=== PATIENT | female | born 1965 | race Caucasian/White ===

== ENCOUNTER 2019-05-25 16:26 | Emergency (ER) | payer OTHER ==
[~2019-05-25] VITALS: Ht 177.8 cm; Wt 131.5 kg
[~2019-05-25 16:26] MED LIST: ASPI81CH PO; HYDACE5 PO; HYDCHL25 PO; PENVK250 PO
[2019-05-25 17:28] LABS: BASOPHILS ABSOLUTE AUTO 0.03 K/mm3 (0.00-0.23); BASOPHILS PERCENT AUTO 1 % (0-2); EOSINOPHILS ABSOLUTE AUTO 0.06 K/mm3 (0.00-0.68); EOSINOPHILS PERCENT AUTO 1 % (0-6); Hematocrit 42.6 % (33.0-51.0); Hemoglobin 13.8 g/dL (11.5-16.0); IMMATURE GRAN ABSOLUTE AUTO 0.01 K/mm3 (0.00-0.10); IMMATURE GRAN PERCENT AUTO 0 % (0-1); LYMPHOCYTES ABSOLUTE AUTO 1.64 K/mm3 (0.84-5.20); LYMPHOCYTES PERCENT AUTO 33 % (21-46); MONOCYTES ABSOLUTE AUTO 0.38 K/mm3 (0.16-1.47); MONOCYTES PERCENT AUTO 8 % (4-13); Mean Corpuscular HGB 30.2 pg (26.0-34.0); Mean Corpuscular HGB Conc 32.4 g/dL (31.5-36.5); Mean Corpuscular Volume 93 fL (80-100); Mean Platelet Volume 11.1 fL (9.1-12.4); NEUTROPHILS ABSOLUTE AUTO 2.92 K/mm3 (1.96-9.15); NEUTROPHILS PERCENT AUTO 58 % (41-73); Platelet Count 159 K/mm3 (150-400); RDW Coefficient Variation 14.4 % (11.7-14.2); RDW Standard Deviation 49.3 fL (35.1-46.3); Red Blood Cell Count 4.57 M/mm3 (3.80-5.20); White Blood Cell Count 5.04 K/mm3 (4.00-11.30)
[2019-05-25 17:50] LABS: Alanine Aminotransfer (ALT/SGP 21 U/L (12-78); Albumin, Blood 3.6 g/dL (3.4-5.0); Albumin/Globulin Ratio 0.9 (0.8-1.8); Alk Phos 79 U/L (50-136); Anion Gap 7 mmol/L (6-16); Aspartate Aminotrans (AST/SGOT 12 U/L (12-37); Bilirubin, Total 0.4 mg/dL (0.1-1.0); Blood Urea Nitrogen 23 mg/dL (8-24); Bun/Creatinine Ratio 29.9 (12.0-20.0); CO2, Blood 27 mmol/L (21-32); Calcium, Blood 9.3 mg/dL (8.5-10.1); Chloride, Blood 104 mmol/L (98-108); Creatinine, Blood 0.77 mg/dL (0.40-1.00); Glomerular Filtration Rate >60 (60-); Glucose, Blood 89 mg/dL (70-99); Potassium, Blood 3.5 mmol/L (3.5-5.5); Sodium, Blood 138 mmol/L (136-145); Total Protein, Blood 7.6 g/dL (6.4-8.2); Troponin I <0.015 ng/mL (0.000-0.040)
== END 2019-05-25 19:26 | disposition home or self-care (01) ==
LOC: ER 16:26
PROVIDERS: Physician Assistant
DX: I10 Essential (primary) hypertension (principal); F17.210 Nicotine dependence, cigarettes, uncomplicated
CPT/HCPCS: 36415; 71046; 80053; 84484; 85025; 93005; 93010; 99284-25

== ENCOUNTER → 2019-10-07 | Outpatient (CLI) | payer OTHER ==
[2019-10-09 19:08] LABS: HPV 16 Negative (Negative); HPV 18 Negative (Negative); HPV OTHER HR TYPES Negative (Negative)
== END | disposition home or self-care (01) ==
LOC: LAB SHORT 19:08 → LAB 19:08
PROVIDERS: Physician Assistant
DX: Z01.419 Encounter for gynecological examination (general) (routine) without abnormal findings (principal)
CPT/HCPCS: 87624; G0123

== ENCOUNTER 2019-12-07 06:03 | Day surgery (SDC) | payer OTHER ==
[~2019-12-07] VITALS: Ht 177 cm; Wt 112.8 kg
[~2019-12-07 06:03] MED LIST changes: +Norco 5-325 Ta1 EACH PO; +Prinivil10 MG PO
--- NOTE | 2019-12-07 08:21 | NUR ---
History, Chart, Medications and Allergies reviewed before start of procedure.Patient confirms NPO status and agrees with scheduled surgery. Patient reports completing Chlorhexadine WASH X2 prior to admission to hospital, PT REPORT UNABLE TO GET INTO SHOWER AT THIS TIME DUE TO ANKLE INJURY.Surgical site prepped with 2% Chlorhexidine cloth wipe. DISCUSSED NO LABS OR EKG WITH DR. JARQUIN. PER HIM NO NEED FOR THESE PREOP.
--- NOTE | 2019-12-07 09:06 | NUR ---
12/07/19 0[address] THE LOCAL USED WAS 20ML OF 0.5% BUPIVICAINE 1:1 WITH LIDOCAINE 1%, INJECTED AT OPERATIVE SITE.
--- NOTE | 2019-12-07 10:11 | NUR ---
RAMP SERVICE MAN | IV ASSESSMENT THIS RN WAS ASSESSING IV FROM OPPOSITE SIDE OF BED WHEN, TRYING TO PULL COVERS OUT OF THE WAY, ACCIDENTLY TOUCHED PATIENT BREAST. SPOKE WITH PATIENT ABOUT EVENT AND APOLOGIZED. THE PATIENT STATED THAT THEY "DIDN'T EVEN NOTICE" AND THEY SAID "IT'S OKAY". THIS INFORMATION RELAYED TO DESTIN BUSCH (C SOFTWARE DEVELOPER).
--- NOTE | 2019-12-07 10:22 | NUR ---
Discharge instructions reviewed with patient. Patient verbalizes understanding. Copy given to patient to take home. Discharged via wheelchair to private car for ride home.DRG X2 TO RIGHT CHEST C/D/I. PT DENIES PAIN. REVIEWED DC INSTRUCTIONS W/ PT SISTER TONJA WELL.
[2019-12-22] MEDS ORDERED: LOPE2C PO (10:42)
[2019-12-22] MEDS ORDERED: XARELTO15 MG PO (10:43)
[2019-12-22] MEDS ORDERED: [UNRECOGNIZED DRUG - OTHER] PO (10:43)
[2019-12-22] MEDS ORDERED: LEVFLO500 PO (10:44)
== END 2019-12-07 10:25 | disposition home or self-care (01) ==
LOC: ORSCMMR 06:03 → ORD 08:30 → ORSCMMR 10:25
PROVIDERS: Surgery
PROC: 05HM33Z Insertion of Infusion Device into Right Internal Jugular Vein, Percutaneous Approach (ICD-10-PCS; principal; 2019-12-07 08:30)
PROC: B543ZZA Ultrasonography of Right Jugular Veins, Guidance (ICD-10-PCS; principal; 2019-12-07 08:30)
DX: C25.2 Malignant neoplasm of tail of pancreas (principal); I10 Essential (primary) hypertension; F17.210 Nicotine dependence, cigarettes, uncomplicated; E66.01 Morbid (severe) obesity due to excess calories; Z68.36 Body mass index [BMI] 36.0-36.9, adult; Z79.899 Other long term (current) drug therapy; Z79.82 Long term (current) use of aspirin
CPT/HCPCS: 77001; C1788; J0690; J1642; J2250; J2704; J3010; J7120

== ENCOUNTER 2020-05-09 12:24 | Emergency (ER) | payer OTHER ==
[~2020-05-09] VITALS: Ht 177.8 cm; Wt 110.7 kg
[~2020-05-09 12:24] MED LIST changes: +LEVFLO500 PO; +LOPE2C PO; +MORP15ER PO; +PRED20 PO; +XARELTO15 MG PO; +[UNRECOGNIZED DRUG - OTHER] PO
[2020-05-09 14:17] LABS: BASOPHILS ABSOLUTE AUTO 0.03 K/mm3 (0.00-0.23); BASOPHILS PERCENT AUTO 0 % (0-2); EOSINOPHILS ABSOLUTE AUTO 0.06 K/mm3 (0.00-0.68); EOSINOPHILS PERCENT AUTO 1 % (0-6); Hematocrit 38.1 % (33.0-51.0); Hemoglobin 12.2 g/dL (11.5-16.0); IMMATURE GRAN ABSOLUTE AUTO 0.03 K/mm3 (0.00-0.10); IMMATURE GRAN PERCENT AUTO 0 % (0-1); LYMPHOCYTES ABSOLUTE AUTO 0.97 K/mm3 (0.84-5.20); LYMPHOCYTES PERCENT AUTO 11 % (21-46); MONOCYTES ABSOLUTE AUTO 0.54 K/mm3 (0.16-1.47); MONOCYTES PERCENT AUTO 6 % (4-13); Mean Corpuscular Volume 94 fL (80-100); Mean Platelet Volume 12.5 fL (9.1-12.4); NEUTROPHILS ABSOLUTE AUTO 6.87 K/mm3 (1.96-9.15); NEUTROPHILS PERCENT AUTO 81 % (41-73); Platelet Count 123 K/mm3 (150-400); RDW Coefficient Variation 14.1 % (11.7-14.2); RDW Standard Deviation 48.4 fL (35.1-46.3); Red Blood Cell Count 4.06 M/mm3 (3.80-5.20)
[2020-05-09 14:28] LABS: Alanine Aminotransfer (ALT/SGP 90 U/L (12-78); Albumin, Blood 2.8 g/dL (3.4-5.0); Albumin/Globulin Ratio 0.7 (0.8-1.8); Alk Phos 683 U/L (50-136); Anion Gap 10 mmol/L (6-16); Aspartate Aminotrans (AST/SGOT 95 U/L (12-37); Bilirubin, Total 1.3 mg/dL (0.1-1.0); Blood Urea Nitrogen 16 mg/dL (8-24); Bun/Creatinine Ratio 23.4 (12.0-20.0); CO2, Blood 22 mmol/L (21-32); Calcium, Blood 9.8 mg/dL (8.5-10.1); Chloride, Blood 102 mmol/L (98-108); Creatinine, Blood 0.69 mg/dL (0.40-1.00); Globulin, Blood 4.3 g/dL (2.2-4.0); Glomerular Filtration Rate >60 (60-); Glucose, Blood 85 mg/dL (70-99); Potassium, Blood 4.1 mmol/L (3.5-5.5); Sodium, Blood 134 mmol/L (136-145); Total Protein, Blood 7.1 g/dL (6.4-8.2)
[2020-05-09 15:10] LABS: Source, Urine Clean Catch
[2020-05-09 15:12] LABS: Appearance, Urine Clear (Clear); Bilirubin, Urine Neg (Neg); Blood, Urine Neg (Neg); Color, Urine Amber (P-Yellow); Glucose Qualitative, Urine Neg (Neg); Ketones, Urine 3+ (Neg); Leukocyte Esterase, Urine 1+ (Neg); Nitrite, Urine Neg (Neg); Protein, Urine 2+ (Neg); Urobilinogen, Urine NORM (Normal)
[2020-05-09 15:37] LABS: Bacteria Mod /hpf; Red Blood Cells, Urine 0-2 /hpf (0-2); Squamous Epithelial Cells Mod /hpf (Few)
== END 2020-05-09 17:14 | disposition home or self-care (01) ==
LOC: ER 12:24
PROVIDERS: Physician Assistant
DX: C25.9 Malignant neoplasm of pancreas, unspecified (principal); C78.7 Secondary malignant neoplasm of liver and intrahepatic bile duct; M54.6 Pain in thoracic spine; I10 Essential (primary) hypertension; Z79.01 Long term (current) use of anticoagulants; Z79.899 Other long term (current) drug therapy
CPT/HCPCS: 72125; 72128; 80053; 81001; 85025; 87086; 96374; 96375; 99284-25; J1170; J1642; J2405; J7030

== ENCOUNTER 2020-05-23 11:58 | Inpatient (IN) | payer OTHER ==
[~2020-05-23] VITALS: Ht 177.8 cm; Wt 110.0 kg
[2020-05-23 13:04] LABS: Hemoglobin 12.8 g/dL (11.5-16.0); Mean Corpuscular HGB 28.6 pg (26.0-34.0); Mean Corpuscular HGB Conc 32.8 g/dL (31.5-36.5); Mean Corpuscular Volume 87 fL (80-100); RDW Coefficient Variation 14.6 % (11.7-14.2); RDW Standard Deviation 46.6 fL (35.1-46.3); Red Blood Cell Count 4.48 M/mm3 (3.80-5.20); White Blood Cell Count 1.55 K/mm3 (4.00-11.30)
[2020-05-23 13:19] LABS: Albumin, Blood 2.4 g/dL (3.4-5.0); Albumin/Globulin Ratio 0.5 (0.8-1.8); Calcium, Blood 9.2 mg/dL (8.5-10.1); Creatinine, Blood 1.12 mg/dL (0.40-1.00); Globulin, Blood 4.4 g/dL (2.2-4.0); Platelet Count 22 K/mm3 (150-400); Potassium, Blood 3.5 mmol/L (3.5-5.5); Total Protein, Blood 6.8 g/dL (6.4-8.2)
[2020-05-23 13:28] LABS: BAND PERCENT MAN 4 % (0-8); BASOPHILS PERCENT MAN 0 % (0-2); EOSINOPHILS PERCENT MAN 0 % (0-6); LYMPHOCYTES ABSOLUTE MAN 0.24 K/mm3 (0.84-5.20); LYMPHOCYTES PERCENT MAN 16 % (21-46); MONOCYTES ABSOLUTE MAN 0.03 K/mm3 (0.16-1.47); MONOCYTES PERCENT MAN 2 % (4-13); NEUTROPHILS ABSOLUTE MAN 1.27 K/mm3 (1.96-9.15); SEG NEUTROPHILS PERCENT MAN 78 % (41-73); TOTAL CELLS COUNTED 50
--- NOTE | 2020-05-23 13:42 | NUR ---
ED Palliative Care Consult Spoke with Dr Castaneda and discussed case. Pt to ED for nausea and vomiting. Pt has Pancreatic Cancer with Liver Mets. Currently receiving chemo therapy. Pt may benefit from conversation regarding goals of care. Attempted to see Pt but currently receiving care from ED nurse Ruth. Ruth attempting IV. Will F/U at a later time.
--- NOTE | 2020-05-23 14:35 | NUR ---
Pt is currently being taken down to imaging. Pt's daughter Gudelia remains in the room. Gudelia states "Is she nearing the end"? Asked Gudelia to elaborate the questions. She states "The doctor mentioned hospice". Instructed Gudelia hospice is an option for Pt to consider at some point in her future. Pt arrives back to room. Pt reports 8/10 pain in her back and abdomen. Pt reports taking morphine 15mg IR Q 4-6 hours PRN. She states times that breakthrough medication helps and times is does not. Engaged in therapeutic conversation regarding the option for hospice. Discussed the importance of routine conversations with Dr Portillo regarding treatment and benefits vs considering hospice. Discussed treatment vs comfort and quality of life. Pt does not respond or give her thoughts regarding hospice. Ended visit to allow Pt to rest. Spoke with Pt's ED RN Ruth and discussed case. Palliative Care will remain available.
[2020-05-23 17:34] LABS: Source, Urine Clean Catch
[2020-05-23 17:46] LABS: Appearance, Urine Cloudy (Clear); Blood, Urine 3+ (Neg); Color, Urine Amber (P-Yellow); Glucose Qualitative, Urine Neg (Neg); Ketones, Urine 1+ (Neg); Leukocyte Esterase, Urine 1+ (Neg); Nitrite, Urine Pos (Neg); Protein, Urine 3+ (Neg); Specific Gravity, Urine 1.025 (1.003-1.022); Urobilinogen, Urine 2+ (Normal)
[2020-05-23 17:51] LABS: Bilirubin, Urine 2+ (Neg)
[2020-05-23 17:54] LABS: White Blood Cells, Urine 25-50 /hpf (0-5)
[2020-05-23 17:55] LABS: Bacteria Many /hpf; Squamous Epithelial Cells Few /hpf (Few); Transitional Epithelial Cells Mod /hpf (0-Rare)
--- NOTE | 2020-05-23 19:29 | NUR ---
PT ADMITTED TO ICU FROM ER FOR POSSIBLE SEPSIS, HYPOTENSION, SIRS. PT HAS STAGE 1V PANCREATIC CA W METS TO LIVER. PT ARRIVED AWAKE, DROSWY, PALE, DIAPHORETIC. PT STATED ON ADMIT THAT PAIN AND NAUSEA WHERE IMPROVED. ADMIT BP LOW W MAP <60. LEVOPHED STARTED TO MEDIPORT FOR HYPOTENSION. LR STARTED AT 150CC/HR. POWERGLIDE PLACED TO DELISA FOR PROTONIX GTT. SHORTLY AFTER POWERGLIDE STARTED, HYPOTENSION WORSENED, PT BECAME BRADYCARDIC IN 30'S, PT BECAME WHITE, LIPS TURNED BLUE, PT VERY DAZED. ATROPINE 0.5MG GIVEN FOR SYMPTOMATIC BRADYCARDIA. LEVOPHED TITRATED UP TO 30MCG. PT RESPONDED WELL TO ATROPINE AND LEVOPHED WAS TITRATED DOWN TO 6MCG. DR CARROLL CALLED AND GIVEN UPDATE. CONSULT ORDERED FOR CRITICAL CARE. DR ELIZABETH CALLED AND WAS IN TO SEE PT WITHIN 15MIN. VASOPRESSIN ORDERED AND STARTED AT 0.04UNITS. ONE UNIT PLATELETS GIVEN WITHOUT ANY ADVERSE REACTIONS. PT LOOKS MUCH IMPROVED. MENTATING WELL, COLOR IMPROVED, BP IMPROVED. PT NOW IN SINUS RYTHYM W RATE 60-80.
[2020-05-23 23:25] LABS: Hematocrit 30.6 % (33.0-51.0); Hemoglobin 9.9 g/dL (11.5-16.0)
[2020-05-24 03:55] LABS: BASOPHILS ABSOLUTE AUTO 0.02 K/mm3 (0.00-0.23); BASOPHILS PERCENT AUTO 1 % (0-2); Hemoglobin 9.7 g/dL (11.5-16.0); LYMPHOCYTES ABSOLUTE AUTO 0.72 K/mm3 (0.84-5.20); LYMPHOCYTES PERCENT AUTO 24 % (21-46); MONOCYTES ABSOLUTE AUTO 0.19 K/mm3 (0.16-1.47); MONOCYTES PERCENT AUTO 6 % (4-13); Mean Corpuscular HGB 28.8 pg (26.0-34.0); Mean Corpuscular HGB Conc 32.3 g/dL (31.5-36.5); Mean Corpuscular Volume 89 fL (80-100); Mean Platelet Volume 11.9 fL (9.1-12.4); RDW Coefficient Variation 14.6 % (11.7-14.2); Red Blood Cell Count 3.37 M/mm3 (3.80-5.20); White Blood Cell Count 2.97 K/mm3 (4.00-11.30)
[2020-05-24 03:58] LABS: EOSINOPHILS PERCENT AUTO 0 % (0-6); IMMATURE GRAN ABSOLUTE AUTO 0.25 K/mm3 (0.00-0.10); IMMATURE GRAN PERCENT AUTO 8 % (0-1); NEUTROPHILS ABSOLUTE AUTO 1.79 K/mm3 (1.96-9.15); NEUTROPHILS PERCENT AUTO 60 % (41-73)
[2020-05-24 03:59] LABS: Platelet Count 25 K/mm3 (150-400)
[2020-05-24 04:11] LABS: Alanine Aminotransfer (ALT/SGP 64 U/L (12-78); Albumin, Blood 1.9 g/dL (3.4-5.0); Albumin/Globulin Ratio 0.5 (0.8-1.8); Alk Phos 398 U/L (50-136); Anion Gap 8 mmol/L (6-16); Aspartate Aminotrans (AST/SGOT 84 U/L (12-37); Bilirubin, Total 1.3 mg/dL (0.1-1.0); Blood Urea Nitrogen 19 mg/dL (8-24); CO2, Blood 25 mmol/L (21-32); Calcium, Blood 7.9 mg/dL (8.5-10.1); Chloride, Blood 103 mmol/L (98-108); Creatinine, Blood 0.83 mg/dL (0.40-1.00); Globulin, Blood 3.8 g/dL (2.2-4.0); Glomerular Filtration Rate >60 (60-); Glucose, Blood 137 mg/dL (70-99); Potassium, Blood 3.4 mmol/L (3.5-5.5); Sodium, Blood 136 mmol/L (136-145); Total Protein, Blood 5.7 g/dL (6.4-8.2)
[2020-05-24 04:25] LABS: BAND PERCENT MAN 8 % (0-8); BASOPHILS PERCENT MAN 0 % (0-2); EOSINOPHILS PERCENT MAN 0 % (0-6); LYMPHOCYTES ABSOLUTE MAN 0.86 K/mm3 (0.84-5.20); LYMPHOCYTES PERCENT MAN 29 % (21-46); METAMYELOCYTE ABSOLUTE MAN 0.05 K/mm3 (0.00-0.00); METAMYELOCYTE PERCENT MAN 2 % (0-0); MONOCYTES PERCENT MAN 0 % (4-13); NEUTROPHILS ABSOLUTE MAN 2.04 K/mm3 (1.96-9.15); SEG NEUTROPHILS PERCENT MAN 61 % (41-73); TOTAL CELLS COUNTED 100
--- NOTE | 2020-05-24 05:31 | NUR ---
SHIFT SUMMARY PATIENT SLEPT WELL THROUGH NIGHT. HAD ONE INSTANCE OF VOIDING, BP IMPROVED GREATLY, LEVOPHED DRIP NOW DOWN TO 4 MCG/MIN. PAIN WELL CONTROLLED WITH AVAILABLE FENTANYL. BOTH BLOOD CULTURES POSITIVE FOR GRAM NEGATIVE BACILLI, INFORMED DR. DAVIS. VSS. WILL CONTINUE TO MONITOR.
--- NOTE | 2020-05-24 08:00 | NUR ---
PT AWAKE IN BED THIS AM, STATES SHE FEELS BETTER THAN SHE DID YESTERDAY. PT REQUEST FOOD AND SOMETHING TO DRINK. LEVOPHED AT 6MCG, PT REQUEST TO GET UP TO COMMODE (SHE STATED SHE HAD EARLIER AND TOLERATED WELL), SBP AT THAT TIME 126. ORTHSTATIC BP'S TAKEN, SBP DID DROP W STANDING TO 103, PT ASSISTED BACK TO BED, WILL KEEP ON BEDREST FOR NOW AND TITRATE DOWN LEVOPHED TOLERATED. PT STATES PAIN TO RUQ AND LUQ 3/10, STATES RUQ IS HER "NORMAL PAIN" AND LUQ IS NEW PAIN. PT DENIES NAUSEA. BT'S PRESENT T/O. PT VOIDED 500CC DARK ORANGE URINE.DR CARROLL CALLED AND GIVEN UPDATE, INCLUDING + BLOOD CX'S. AWITING NEW ORDERS.
--- NOTE | 2020-05-24 10:10 | NUR ---
Pt resting in bed and reports feeling better. Pt reports 7/10 pain. Pt's daughter Gudelia on speaker phone during visit. Discussed MS Contin listed on home medication list. Both Gudelia and Pt's confirms not taking MS Contine. Pt reports taking Morphine IR 15mg Q 4-6 hours PRN. Pt reports being on this medication for approximately 1 month and experiences light headedness and dizziness after taking. Pt agreeable to have MD consider different pain medication for home. Called Pt's pharmacy and confirmed Pt's pain medication of Morphine IR 15mg tablet Q 4-6 hours PRN for pain. Spoke with Pt's bedside RN Micaela and reported home medication. Micaela will correct medication in Pt's home med list. Called and spoke with Gaby at Dr Portillo's office. Reported Pt's symptoms after taking pain medication. Gaby will relay information to Dr Portillo for consideration. Palliative Care will remain available.
--- NOTE | 2020-05-24 11:02 | NUR ---
DR CARROLL AND DR HERNANDEZ IN TO SEE PT THIS AM. SEE NEW ORDERS. LEVOPHED GTT PLACED ON STANDBY
--- NOTE | 2020-05-24 12:00 | NUR ---
Echocardiogram completed.
--- NOTE | 2020-05-24 12:20 | NUR ---
PT'S BP REMAINS LOW BUT STABLE W MAP >65 OFF OF LEVOPHED. PT C/O BEING COLD/CHILLED. TEMP 97.1. ROOM TEMP INCREASED, WARM BLANKETS GIVEN. FENT 25MCG IVP GIVEN FOR ABD PAIN 12/20; PT STATES IT HAS NOT HELPED YET; WILL NOTIFY
[2020-05-24] MEDS ORDERED: MORPHINE SULFAT15 M1 PO (14:16)
--- NOTE | 2020-05-24 16:41 | NUR ---
FENTANYL DOSE CHANGED TO 25-50MCG Q 4HRS FOR PAIN. FENT 25MCG GIVEN FOR ABD PAIN 11/19. LEVOPHED HAS BEEN OFF SINCE THIS AM AND BP HAS BEEN SOFT BUT STABLE. PT WAS UP TO COMMODE TO VOID AND PASS BM; TOLERATED WELL. PT NOW PCU STATUS PER DR ELIZABETH.
[2020-05-25 04:41] LABS: BASOPHILS ABSOLUTE AUTO 0.01 K/mm3 (0.00-0.23); BASOPHILS PERCENT AUTO 1 % (0-2); Hematocrit 28.1 % (33.0-51.0); LYMPHOCYTES ABSOLUTE AUTO 0.37 K/mm3 (0.84-5.20); LYMPHOCYTES PERCENT AUTO 28 % (21-46); MONOCYTES ABSOLUTE AUTO 0.31 K/mm3 (0.16-1.47); MONOCYTES PERCENT AUTO 23 % (4-13); Mean Corpuscular HGB 28.5 pg (26.0-34.0); Mean Corpuscular Volume 89 fL (80-100); RDW Coefficient Variation 14.5 % (11.7-14.2); RDW Standard Deviation 47.1 fL (35.1-46.3); Red Blood Cell Count 3.16 M/mm3 (3.80-5.20); White Blood Cell Count 1.34 K/mm3 (4.00-11.30)
[2020-05-25 04:45] LABS: EOSINOPHILS PERCENT AUTO 0 % (0-6); IMMATURE GRAN ABSOLUTE AUTO 0.14 K/mm3 (0.00-0.10); IMMATURE GRAN PERCENT AUTO 10 % (0-1); NEUTROPHILS ABSOLUTE AUTO 0.51 K/mm3 (1.96-9.15); NEUTROPHILS PERCENT AUTO 38 % (41-73)
[2020-05-25 04:46] LABS: Platelet Count 13 K/mm3 (150-400)
--- NOTE | 2020-05-25 04:50 | NUR ---
SHIFT SUMMARY PATIENT HAS SLEPT VERY WELL TONIGHT. GAVE ONE DOSE OF FENTANYL FOR PAIN, PT. STATES THIS TAKES THE PAIN AWAY FOR A GOOD COUPLE OF HOURS, BUT A DULL, TOLERABLE, ACHE IS PRESENT NEARLY CONSTANTLY. NO ISSUES WITH BLOOD PRESSURE. HAS HAD A COUPLE OF MINOR NOSE BLEEDS, E.B.L. < 5 mL, NO OTHER SOURCE OF BLEEDING. VSS. ASSESSMENT IS CHARTED. WILL CONTINUE TO MONITOR.
[2020-05-25 05:08] LABS: Alanine Aminotransfer (ALT/SGP 52 U/L (12-78); Albumin, Blood 1.7 g/dL (3.4-5.0); Albumin/Globulin Ratio 0.5 (0.8-1.8); Alk Phos 368 U/L (50-136); Anion Gap 8 mmol/L (6-16); Aspartate Aminotrans (AST/SGOT 62 U/L (12-37); Blood Urea Nitrogen 12 mg/dL (8-24); Bun/Creatinine Ratio 18.2 (12.0-20.0); CO2, Blood 25 mmol/L (21-32); Chloride, Blood 102 mmol/L (98-108); Creatinine, Blood 0.66 mg/dL (0.40-1.00); Globulin, Blood 3.5 g/dL (2.2-4.0); Glomerular Filtration Rate >60 (60-); Glucose, Blood 76 mg/dL (70-99); Potassium, Blood 3.6 mmol/L (3.5-5.5); Sodium, Blood 135 mmol/L (136-145); Total Protein, Blood 5.2 g/dL (6.4-8.2)
[2020-05-25 05:21] LABS: BAND PERCENT MAN 10 % (0-8); BASOPHILS PERCENT MAN 0 % (0-2); EOSINOPHILS PERCENT MAN 0 % (0-6); LYMPHOCYTES ABSOLUTE MAN 0.33 K/mm3 (0.84-5.20); LYMPHOCYTES PERCENT MAN 25 % (21-46); METAMYELOCYTE ABSOLUTE MAN 0.02 K/mm3 (0.00-0.00); METAMYELOCYTE PERCENT MAN 2 % (0-0); MONOCYTES ABSOLUTE MAN 0.25 K/mm3 (0.16-1.47); MONOCYTES PERCENT MAN 19 % (4-13); NEUTROPHILS ABSOLUTE MAN 0.67 K/mm3 (1.96-9.15); SEG NEUTROPHILS PERCENT MAN 40 % (41-73); TOTAL CELLS COUNTED 100
[2020-05-25 05:22] LABS: OTHER CELL PERCENT MAN 4 % (0-0)
--- NOTE | 2020-05-25 09:42 | NUR ---
recieved report from Zora nurse companion @ [phone]. Patient to transfer to room 326.
--- NOTE | 2020-05-25 09:49 | NUR ---
AM NOTE... ASSUMED CARE OF PT APROX 0700. PT IS A&Ox4 AND SBA TO THE BSC. PT IS ON LR AT 150MLS/HR PT'S VS STABLE AT THIS TIME. PT DENIES ANY CHEST PAIN/PRESSURE. PT WAS MEDICATED FOR NAUSEA AND 9/10 ABD PAIN PER EMAR. PT IS ON RA. L/S CLEAR T/O. BT PRESENT AND NORMOACTIVE, ABD IS SOFT BUT TENDER TO PALP. NO EDEMA NOTED ON ASSESSMENT. MEDIPORT RUNNING LR AT 150MLS/HR, POWERGLIDE TO THE DELISA. PT IS TO BE NPO FOR POSSIBLE LÓPEZ BY DR. RIVERO. PT IS TO TRANSFER TO THE MEDICAL FLOOR, MEDICAL FLOOR NURSE CALLED AND REPORT WAS GIVEN. CALL LIGHT IN REACH WILL CONTINUE TO MONITOR UNTIL THE PT IS TRANSFERRED.
--- NOTE | 2020-05-25 14:22 | NUR ---
CALLED DR CARROLL AT 1420 TO ASK FOR BETTER PAIN MANAGEMENT AND N/V CONTROL. NEW ORDERS NOTED IN EMAR. ORDERS TO ADVANCE DIET TOLERATED TO BEGIN WITH FULL DIET.
--- NOTE | 2020-05-25 16:46 | NUR ---
PATIENT IS VERY SICK; NAUSEAS AND DRY HEAVING AND JUST MISERABLE. SHE IS VERY COOPERATIVE WITH CARE AND TREATMENTS DESPITE FEELING HORRIBLE. PATIENT CONTINUES ON IV ABX WITHOUT S/SX OF ADVERSE REACTIONS NOTED OR REPORTED. IMAGING AND TESTS CONTINUE TO BE PERFORMED. PATIENT MEDICATED FOR PAIN AND NAUSEA NEEDED. DAUGHTER IS AT BEDSIDE AT THIS TIME. CALL LIGHT WITHIN REACH. WILL CONTINUE TO MONITOR AND PROVIDE CARE NEEDED.
--- NOTE | 2020-05-25 16:49 | NUR ---
Supportive visit today. Pt resting in bed and reports 5/10 pain. She reports current pain medication is beneficial for only short term. Pt reports feeling worse today. Continued therapeutic listening and answered questions. Reviewed plan of care. Pt reports no other concerns at this time. Spoke with Bedside NARAYAN Griffin and discussed case. Palliative Care will remain available for symptom management and supportive visits.
--- NOTE | 2020-05-26 04:10 | NUR ---
SHIFT SUMMARY PATIENT HAD NO ACUTE CHANGES OBSERVED. AXOX 4 AND SBA. MEDIPORT RIGHT CHEST INTACT. POWERGLIDE DELISA INTACT. LR INFUSING AT 150 mL/HR. REPORTS RUQ PAIN X 2 AND IV FENTANYL 50 MCG GIVEN PER EMAR. REPAIR SERVICE DISPATCHER REPORTS NSR 73. VSS/AFEBRILE. DENIES N/V AND SOB. COOPERATIVE WITH CARE. CALL LIGHT IN REACH. BED IN LOWEST POSITION. WILL CONTINUE TO MONITOR UNTIL DAY SHIFT NURSE ASSUMES CARE.
[2020-05-26 05:17] LABS: Hematocrit 28.5 % (33.0-51.0); Mean Corpuscular HGB 28.2 pg (26.0-34.0); Mean Corpuscular HGB Conc 31.6 g/dL (31.5-36.5); Mean Corpuscular Volume 89 fL (80-100); NRBC ABSOLUTE 0.03 K/mm3 (0.00-0.02); NRBC Auto 1.2 /100 WBC (0.0-0.2); RDW Coefficient Variation 14.6 % (11.7-14.2); RDW Standard Deviation 47.5 fL (35.1-46.3); Red Blood Cell Count 3.19 M/mm3 (3.80-5.20); White Blood Cell Count 2.48 K/mm3 (4.00-11.30)
[2020-05-26 05:22] LABS: Platelet Count 20 K/mm3 (150-400)
[2020-05-26 05:39] LABS: BAND PERCENT MAN 11 % (0-8); BASOPHILS PERCENT MAN 0 % (0-2); EOSINOPHILS ABSOLUTE MAN 0.04 K/mm3 (0.00-0.68); EOSINOPHILS PERCENT MAN 2 % (0-6); LYMPHOCYTES ABSOLUTE MAN 0.52 K/mm3 (0.84-5.20); LYMPHOCYTES PERCENT MAN 21 % (21-46); METAMYELOCYTE ABSOLUTE MAN 0.04 K/mm3 (0.00-0.00); METAMYELOCYTE PERCENT MAN 2 % (0-0); MONOCYTES ABSOLUTE MAN 0.44 K/mm3 (0.16-1.47); MONOCYTES PERCENT MAN 18 % (4-13); NEUTROPHILS ABSOLUTE MAN 1.41 K/mm3 (1.96-9.15); SEG NEUTROPHILS PERCENT MAN 46 % (41-73); TOTAL CELLS COUNTED 100
[2020-05-26 05:56] LABS: Alanine Aminotransfer (ALT/SGP 43 U/L (12-78); Albumin, Blood 1.7 g/dL (3.4-5.0); Albumin/Globulin Ratio 0.5 (0.8-1.8); Alk Phos 467 U/L (50-136); Anion Gap 8 mmol/L (6-16); Aspartate Aminotrans (AST/SGOT 57 U/L (12-37); Bilirubin, Total 1.2 mg/dL (0.1-1.0); Blood Urea Nitrogen 8 mg/dL (8-24); Bun/Creatinine Ratio 10.7 (12.0-20.0); CO2, Blood 26 mmol/L (21-32); Calcium, Blood 8.1 mg/dL (8.5-10.1); Chloride, Blood 103 mmol/L (98-108); Creatinine, Blood 0.75 mg/dL (0.40-1.00); Globulin, Blood 3.5 g/dL (2.2-4.0); Glomerular Filtration Rate >60 (60-); Glucose, Blood 70 mg/dL (70-99); Potassium, Blood 3.3 mmol/L (3.5-5.5); Sodium, Blood 137 mmol/L (136-145); Total Protein, Blood 5.2 g/dL (6.4-8.2)
--- NOTE | 2020-05-26 15:55 | NUR ---
Spoke with Bedside RN Diana and discussed case prior to visiting Pt. Diana reports Roxicodone added to Pt's pain regimen. Pt resting in bed upon arrival. Pt reports pain is currently managed with current regimen. Educated on the importance of staying on top of pain. Offered therapeutic listening and answered questions. Pt expresses appreciation of visit and reports no other concerns at this time. Palliative Care will remain available for supportive visits.
--- NOTE | 2020-05-26 19:46 | NUR ---
SHIFT SUMMARY KEREN WAS PAINFUL TODAY, IV FENTANYL HELPED FOR A LITTLE WHILE. 5MG OXY GIVEN TO GOOD EFFECT. SISTER VISITED. DR ALCALA (INF DISEASE) CONSULTED AT BEDSIDE TODAY. PALLIATIVE CARE VISITED. HAD ONE LOOSE BM. INDEP TO BSC. TOOK MEDS PRESCRIBED. CALL LIGHT IN REACH, REPORT GIVEN TO NIGHT NURSE
--- NOTE | 2020-05-27 03:51 | NUR ---
SHIFT SUMMARY PATIENT HAD NO ACUTE CHANGES OBSERVED. AXOX 3 AND ONE ASSIST TO BSC. MEDIPORT RIGHT CHEST INTACT INFUSING LR AT 150 mL/HR. POWERGLIDE DELISA INTACT. VSS/AFEBRILE. REPORTS RUQ PAIN X 2 AND IV FENTANYL 50 MCG AND OXYCODONE 5 MG GIVEN PER EMAR WITH GOOD AFFECT. PATIENT REPORTS BEING ABLE TO SLEEP LONGER WITH BETTER PAIN MANAGEMENT. DENIES SOB AND N/V. COOPERATIVE WITH CARE. CALL LIGHT IN REACH. BED IN LOWEST POSITION. WILL CONTINUE TO MONITOR UNTIL DAY SHIFT NURSE ASSUMES CARE.
[2020-05-27 05:08] LABS: Hematocrit 27.8 % (33.0-51.0); Hemoglobin 8.9 g/dL (11.5-16.0); Mean Corpuscular HGB 28.8 pg (26.0-34.0); Mean Corpuscular Volume 90 fL (80-100); NRBC ABSOLUTE 0.05 K/mm3 (0.00-0.02); RDW Coefficient Variation 14.9 % (11.7-14.2); RDW Standard Deviation 49.2 fL (35.1-46.3); Red Blood Cell Count 3.09 M/mm3 (3.80-5.20); White Blood Cell Count 4.98 K/mm3 (4.00-11.30)
[2020-05-27 05:23] LABS: Platelet Count 32 K/mm3 (150-400)
[2020-05-27 05:30] LABS: BAND PERCENT MAN 15 % (0-8); BASOPHILS ABSOLUTE MAN 0.04 K/mm3 (0.00-0.23); BASOPHILS PERCENT MAN 1 % (0-2); EOSINOPHILS PERCENT MAN 0 % (0-6); LYMPHOCYTES ABSOLUTE MAN 1.09 K/mm3 (0.84-5.20); LYMPHOCYTES PERCENT MAN 22 % (21-46); MONOCYTES ABSOLUTE MAN 0.74 K/mm3 (0.16-1.47); MONOCYTES PERCENT MAN 15 % (4-13); MYELOCYTE ABSOLUTE MAN 0.04 K/mm3 (0.00-0.00); MYELOCYTE PERCENT MAN 1 % (0-0); NEUTROPHILS ABSOLUTE MAN 3.03 K/mm3 (1.96-9.15); SEG NEUTROPHILS PERCENT MAN 46 % (41-73); TOTAL CELLS COUNTED 100
[2020-05-27 05:35] LABS: Albumin, Blood 1.7 g/dL (3.4-5.0); Anion Gap 7 mmol/L (6-16); Blood Urea Nitrogen 7 mg/dL (8-24); Bun/Creatinine Ratio 9.2 (12.0-20.0); CO2, Blood 27 mmol/L (21-32); Calcium, Blood 7.8 mg/dL (8.5-10.1); Chloride, Blood 101 mmol/L (98-108); Creatinine, Blood 0.76 mg/dL (0.40-1.00); Glomerular Filtration Rate >60 (60-); Glucose, Blood 79 mg/dL (70-99); Phosphorus, Blood 2.5 mg/dL (2.5-4.9); Potassium, Blood 3.2 mmol/L (3.5-5.5); Sodium, Blood 135 mmol/L (136-145)
--- NOTE | 2020-05-27 05:36 | NUR ---
CRITICAL LAB: PLT 32 cL, WAS 20 cL.
--- NOTE | 2020-05-27 19:26 | NUR ---
SHIFT SUMMARY PT A/O X4; PLEASANT AND COOPERATIVE WITH CARE. PT DID VERY WELL WITH PAIN CONTROL TODAY. MEDICATED X2 WITH 5 MG OXY FOR PAIN. WANTED TO TRY JUST THE OXY IN ORDER TO AVOID USING IV PAIN MEDICATION. SBA IN THE ROOM. BOWEL CARE ORDERED FOR CONSTIPATION. VSS; RESTING IN BED WITH CALL LIGHT IN REACH. GAVE REPORT TO FUNDS TRANSFER CLERK RN.
[2020-05-28 05:03] LABS: Hematocrit 27.9 % (33.0-51.0); Hemoglobin 8.9 g/dL (11.5-16.0); Mean Corpuscular HGB 28.7 pg (26.0-34.0); Mean Corpuscular HGB Conc 31.9 g/dL (31.5-36.5); Mean Corpuscular Volume 90 fL (80-100); NRBC ABSOLUTE 0.03 K/mm3 (0.00-0.02); NRBC Auto 0.4 /100 WBC (0.0-0.2); RDW Coefficient Variation 15.2 % (11.7-14.2); RDW Standard Deviation 49.7 fL (35.1-46.3); White Blood Cell Count 7.21 K/mm3 (4.00-11.30)
--- NOTE | 2020-05-28 05:11 | NUR ---
SHIFT SUMMARY ASSUMED CARE OF PT AT 1900. PT IS A/OX4. HEART SOUNDS REGULAR, LUNG SOUNDS DIMINISHED. ABD DISTENDED AND FIRM, PT C/O CONSTIPATION, BOWEL CARE GIVEN. PT URINE IS DARK JENNY, PT CONCERNED WHY SHE IS NOT BEING MUCH. PT INDEPENDENT TO BATHROOM. LEGS HAVE +2 PITTING EDEMA. PT HAS BRUISING T/O. PT C/O PAIN IN HER ABD. PT HAD TO USE FENTYAL ONCE. THIS UPSET THE PATIENT AND MADE HER TEARFUL BEUCASE SHE IS SCARED OF WHAT WILL HAPPEN WHEN SHE HAS PAIN AT HOME. CALL LIGHT IN REACH, BED IN LOWEST POSITION.
[2020-05-28 05:16] LABS: Mean Platelet Volume 14.1 fL (9.1-12.4); Platelet Count 49 K/mm3 (150-400)
[2020-05-28 05:22] LABS: Albumin, Blood 1.7 g/dL (3.4-5.0); Anion Gap 6 mmol/L (6-16); Blood Urea Nitrogen 7 mg/dL (8-24); Bun/Creatinine Ratio 10.4 (12.0-20.0); CO2, Blood 28 mmol/L (21-32); Calcium, Blood 7.8 mg/dL (8.5-10.1); Chloride, Blood 101 mmol/L (98-108); Creatinine, Blood 0.68 mg/dL (0.40-1.00); Glomerular Filtration Rate >60 (60-); Glucose, Blood 82 mg/dL (70-99); Magnesium, Blood 1.4 mg/dL (1.6-2.4); Phosphorus, Blood 3.2 mg/dL (2.5-4.9); Potassium, Blood 3.2 mmol/L (3.5-5.5); Sodium, Blood 135 mmol/L (136-145)
[2020-05-28 05:50] LABS: BAND PERCENT MAN 12 % (0-8); BASOPHILS PERCENT MAN 0 % (0-2); EOSINOPHILS PERCENT MAN 0 % (0-6); LYMPHOCYTES ABSOLUTE MAN 1.15 K/mm3 (0.84-5.20); LYMPHOCYTES PERCENT MAN 16 % (21-46); METAMYELOCYTE ABSOLUTE MAN 0.21 K/mm3 (0.00-0.00); METAMYELOCYTE PERCENT MAN 3 % (0-0); MONOCYTES ABSOLUTE MAN 1.08 K/mm3 (0.16-1.47); MONOCYTES PERCENT MAN 15 % (4-13); MYELOCYTE ABSOLUTE MAN 0.21 K/mm3 (0.00-0.00); MYELOCYTE PERCENT MAN 3 % (0-0); NEUTROPHILS ABSOLUTE MAN 4.54 K/mm3 (1.96-9.15); SEG NEUTROPHILS PERCENT MAN 51 % (41-73); TOTAL CELLS COUNTED 100
--- NOTE | 2020-05-28 18:33 | NUR ---
PATIENT IS ALERT AND ORIENTED AND COOPERATIVE WITH CARE. PATIENT C/O CONSTIPATION, A SUPPOSITORY WAS GIVEN THIS EVENING. THE PATIENT WALKED IN THE HALLS WITH FWW, GAIT BELT AND RN, SHE TOLERATED THAT WELL. SHE IS INDEPENDENT TO THE BSC. PATIENT CALLS APPROPRIATELY. THE PATIENT'S GRANDDAUGHTER VISITED HER TODAY. WILL CONTINUE TO MONITOR
--- NOTE | 2020-05-29 04:27 | NUR ---
SHIFT SUMMARY ASSUMED CARE OF PT AT 1900. PT IS A/OX4. PT STILL C/O SWELLING IN HER LEGS. HEART SOUNDS REGULAR, LUNG SOUNDS CLEAR. PT IS PROUD OF HOW FAR SHE HAS COM IN HER PAIN REGIEME. PT STILL C/O CONSTIPATION, BOWEL CARE GIVEN ALONG WITH ONE TIME DOSE OF MIRALAX WITHOUT RELIEF. PT EDUCATED ABOUT DIFFERENT WAYS TO HELP STIMULATE BOWEL MOVEMENTS LIKE WALKING AND SITTING UP. NO ACUTE EVENTS DURING THE NIGHT. PT SLEPT T/O THE NIGHT. CALL LIGHT IN REACH, BED IN LWOEST POSITON.
[2020-05-29 05:06] LABS: Hematocrit 28.7 % (33.0-51.0); Hemoglobin 9.2 g/dL (11.5-16.0); Mean Corpuscular HGB 28.9 pg (26.0-34.0); Mean Corpuscular HGB Conc 32.1 g/dL (31.5-36.5); Mean Corpuscular Volume 90 fL (80-100); NRBC ABSOLUTE 0.02 K/mm3 (0.00-0.02); NRBC Auto 0.2 /100 WBC (0.0-0.2); Platelet Count 65 K/mm3 (150-400); RDW Coefficient Variation 15.3 % (11.7-14.2); RDW Standard Deviation 50.4 fL (35.1-46.3); Red Blood Cell Count 3.18 M/mm3 (3.80-5.20); White Blood Cell Count 10.46 K/mm3 (4.00-11.30)
[2020-05-29 05:10] LABS: Mean Platelet Volume 13.5 fL (9.1-12.4)
[2020-05-29 05:19] LABS: Albumin, Blood 1.7 g/dL (3.4-5.0); Anion Gap 6 mmol/L (6-16); Blood Urea Nitrogen 6 mg/dL (8-24); Bun/Creatinine Ratio 9.2 (12.0-20.0); CO2, Blood 29 mmol/L (21-32); Calcium, Blood 7.7 mg/dL (8.5-10.1); Chloride, Blood 101 mmol/L (98-108); Creatinine, Blood 0.65 mg/dL (0.40-1.00); Glomerular Filtration Rate >60 (60-); Glucose, Blood 88 mg/dL (70-99); Phosphorus, Blood 3.2 mg/dL (2.5-4.9); Potassium, Blood 3.2 mmol/L (3.5-5.5); Sodium, Blood 136 mmol/L (136-145)
[2020-05-29 05:29] LABS: BAND PERCENT MAN 8 % (0-8); BASOPHILS PERCENT MAN 0 % (0-2); EOSINOPHILS PERCENT MAN 1 % (0-6); LYMPHOCYTES ABSOLUTE MAN 2.09 K/mm3 (0.84-5.20); LYMPHOCYTES PERCENT MAN 20 % (21-46); MONOCYTES ABSOLUTE MAN 1.25 K/mm3 (0.16-1.47); MONOCYTES PERCENT MAN 12 % (4-13); MYELOCYTE ABSOLUTE MAN 0.31 K/mm3 (0.00-0.00); MYELOCYTE PERCENT MAN 3 % (0-0); NEUTROPHILS ABSOLUTE MAN 6.69 K/mm3 (1.96-9.15); SEG NEUTROPHILS PERCENT MAN 56 % (41-73); TOTAL CELLS COUNTED 100
--- NOTE | 2020-05-29 18:16 | NUR ---
PATIENT IS ALERT AND ORIENTED AND COOPERATIVE WITH CARE. CARMELA LAGUNA'Kiana. LASIX STARTED TODAY. VENOUS DOPPLER OF BLE IS BEING DONE AT THIS TIME. PATIENT C/O ABDOMINAL PAIN AND CONSTIPATION. TREATED FOR NAUSEA ONCE TODAY. THE PATIENT'S SISTER WAS AT THE BEDSIDE DURING VISITING HOURS. WILL CONTINUE TO MONITOR.
--- NOTE | 2020-05-30 04:08 | NUR ---
SHIFT SUMMARY ASSUMED CARE OF PT AT 1900. PT IS A/OX4. HEART SOUNDS REGULAR, LUNG SOUNDS CLEAR. PT STILL C/O CONSTIPATION. PT STATES SHE FEELS THE LASIX IS WORKING AND MAKING HER FEEL LESS SWOLLEN. PT INDEPENDENT TO BSC. PT C/O PAIN DURING THE NIGHT, MEDICATED PER EMAR. PT STATES THAT SHE FELT THAT IT IS NOT WORKING WELL BECAUSE IT IS TAKING LONGER TO WORK. NO ACUTE EVENTS DURING THE NIGHT. PT SLEPT T/O THE NIGHT. CALL LIGHT IN REACH, BED IN LOWEST POSTION.
[2020-05-30 05:17] LABS: Hematocrit 28.5 % (33.0-51.0)
[2020-05-30 05:43] LABS: Albumin, Blood 1.6 g/dL (3.4-5.0); Anion Gap 6 mmol/L (6-16); Blood Urea Nitrogen 7 mg/dL (8-24); Bun/Creatinine Ratio 10.3 (12.0-20.0); CO2, Blood 30 mmol/L (21-32); Calcium, Blood 7.8 mg/dL (8.5-10.1); Chloride, Blood 99 mmol/L (98-108); Creatinine, Blood 0.68 mg/dL (0.40-1.00); Glomerular Filtration Rate >60 (60-); Glucose, Blood 81 mg/dL (70-99); Magnesium, Blood 1.7 mg/dL (1.6-2.4); Phosphorus, Blood 3.2 mg/dL (2.5-4.9); Potassium, Blood 3.2 mmol/L (3.5-5.5); Sodium, Blood 135 mmol/L (136-145)
--- NOTE | 2020-05-30 16:52 | NUR ---
PT AOX4 AND HAS BEEN COOPERATIVE OF CARE. PT STARTED SHIFT VERY UPSET STATING SHE DID NOT RECIEVE HER PAIN MED AT 0600. UPON GETTING REPORT OF PT SHE WAS SOUND ASLEEP AND NEURO PSYCH SALES SPECIALIST HAD STATED PT HAD NOT SLEEP HARDLY AT ALL THAT NIGHT. PT LATER WOKE UP AND NOTIFIED AID OF PAIN AND DR HAWKINS AT THE SAME TIME. THIS HEAD MIXER TOOK PAIN MEDICATION TO PT WHO WAS VERBALLY VERY UPSET. THIS WRITTER DID HER BEST TO SPEAK WITH PT AND TREATED HER PAIN AND NAUSEA PER EMAR. PT HAS HAD ALL NEEDS TAKEN CARE OF TODAY AND SEEMS TO BE IN A PLEASANT MOOD AT THIS TIME. PT RECIEVED AND ENEMA AND THIS HAS BEEN EFFECTIVE. WILL CONTINUE TO MONITOR. CALL LIGHT IS WITHIN REACH.
--- NOTE | 2020-05-31 01:19 | NUR ---
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 Was on home xaralto & has scattered purple bruises. Nausea when taking PO but declines antiemetic. Recieving rocephin IV & has been seen by ID DR Donnelly. Pain control adeq on oxycodone 5 to 10 mg Q 6 hrs PRN
[2020-05-31 07:10] LABS: Hematocrit 28.2 % (33.0-51.0); Mean Corpuscular HGB 28.8 pg (26.0-34.0); Mean Corpuscular HGB Conc 31.9 g/dL (31.5-36.5); Mean Corpuscular Volume 90 fL (80-100); RDW Coefficient Variation 15.9 % (11.7-14.2); RDW Standard Deviation 51.8 fL (35.1-46.3); Red Blood Cell Count 3.12 M/mm3 (3.80-5.20); White Blood Cell Count 8.31 K/mm3 (4.00-11.30)
[2020-05-31 07:24] LABS: Anion Gap 5 mmol/L (6-16); Blood Urea Nitrogen 7 mg/dL (8-24); Bun/Creatinine Ratio 9.9 (12.0-20.0); CO2, Blood 34 mmol/L (21-32); Calcium, Blood 8.1 mg/dL (8.5-10.1); Chloride, Blood 97 mmol/L (98-108); Creatinine, Blood 0.71 mg/dL (0.40-1.00); Glomerular Filtration Rate >60 (60-); Glucose, Blood 82 mg/dL (70-99); Potassium, Blood 3.6 mmol/L (3.5-5.5); Sodium, Blood 136 mmol/L (136-145)
[2020-05-31 07:32] LABS: Platelet Count 98 K/mm3 (150-400)
[2020-05-31 07:49] LABS: BAND PERCENT MAN 5 % (0-8); BASOPHILS PERCENT MAN 0 % (0-2); EOSINOPHILS PERCENT MAN 0 % (0-6); LYMPHOCYTES ABSOLUTE MAN 0.99 K/mm3 (0.84-5.20); LYMPHOCYTES PERCENT MAN 12 % (21-46); METAMYELOCYTE ABSOLUTE MAN 0.24 K/mm3 (0.00-0.00); METAMYELOCYTE PERCENT MAN 3 % (0-0); MONOCYTES ABSOLUTE MAN 0.91 K/mm3 (0.16-1.47); MONOCYTES PERCENT MAN 11 % (4-13); NEUTROPHILS ABSOLUTE MAN 6.14 K/mm3 (1.96-9.15); SEG NEUTROPHILS PERCENT MAN 69 % (41-73); TOTAL CELLS COUNTED 100
--- NOTE | 2020-05-31 11:55 | NUR ---
Pt resting in bed and reports 5/10 pain. Pt reports current regimen is managing pain. She has required 2 doses of breakthrough Fentayl today. Answered questions and listened to concerns. Pt expresses appreciation of visit and reports no other concerns at this time. Spoke with bedside RN Bonnie and discussed case. Palliative Care will remain available.
--- NOTE | 2020-05-31 17:36 | NUR ---
PT AOX4 AND COOPERATIVE OF CARE. PT STARTED SHIFT CALM AND NO DISTRESS NOTED. RETURNED TO PT'S ROOM LATER FOR MORNING MEDS AND PT WAS CRYING AND TALKING TO SISTER ON PHONE. PT STATES SHE WAS HAVING A BAD DAY AND VERBALIZED A CONCERN FOR WATER RETENTION AROUND HER ABDOMEN. THIS CONCERN WAS WRITTEN ON THE BOARD AND BROUGHT UP WHEN DR HAWKINS DID HER ROUNDS. PT ALSO HAS HAD AN INCREASE IN NAUSEA TODAY AND HAS BEEN TREATED PER EMAR. PT'S PAIN WAS WORSE WELL AND WAS TREATED PER EMAR. PT IS EATING DINNER AT THIS TIME. CALL LIGHT IS WITHIN REACH WILL CONTINUE TO MONITOR.
--- NOTE | 2020-05-31 18:50 | NUR ---
ASSUMED CARE RECEIVED REPORT FROM NARAYAN ALVARES. PT RESTING, NO ACUTE DISTRESS NOTED, DENIES PAIN OR NEEDS AT THIS TIME. CALL LIGHT, POSSESSIONS IN REACH, CONTINUE TO MONITOR.
--- NOTE | 2020-06-01 04:12 | NUR ---
SHIFT SUMMARY PT RESTING, NO S/S ACUTE DISTRESS NOTED. SLEPT T/O MUCH OF THE NIGHT WITH NO ACUTE CHANGES IN CONDITION. VS REVIEWED,WNL. PAIN AND NAUSEA MANAGED WITH MEDS PER EMAR, NO FURTHER EPISODES OF EMESIS NOTED AT THIS TIME. PT APPEARS COMFORTABLE. DENIES FURTHER NEEDS AT THIS TIME. CALL LIGHT, POSSESSIONS IN REACH, BED IN LOW POSITION. WILL CONTINUE TO MONITOR UNTIL REPORT GIVEN TO DAY RN.
[2020-06-01 05:59] LABS: BASOPHILS ABSOLUTE AUTO 0.04 K/mm3 (0.00-0.23); BASOPHILS PERCENT AUTO 0 % (0-2); EOSINOPHILS ABSOLUTE AUTO 0.02 K/mm3 (0.00-0.68); EOSINOPHILS PERCENT AUTO 0 % (0-6); Hematocrit 28.1 % (33.0-51.0); Hemoglobin 8.8 g/dL (11.5-16.0); IMMATURE GRAN ABSOLUTE AUTO 0.29 K/mm3 (0.00-0.10); IMMATURE GRAN PERCENT AUTO 3 % (0-1); LYMPHOCYTES ABSOLUTE AUTO 1.06 K/mm3 (0.84-5.20); LYMPHOCYTES PERCENT AUTO 12 % (21-46); MONOCYTES ABSOLUTE AUTO 0.88 K/mm3 (0.16-1.47); MONOCYTES PERCENT AUTO 10 % (4-13); Mean Corpuscular HGB 28.3 pg (26.0-34.0); Mean Corpuscular HGB Conc 31.3 g/dL (31.5-36.5); Mean Corpuscular Volume 90 fL (80-100); NEUTROPHILS ABSOLUTE AUTO 6.69 K/mm3 (1.96-9.15); NEUTROPHILS PERCENT AUTO 75 % (41-73); Platelet Count 117 K/mm3 (150-400); RDW Standard Deviation 52.6 fL (35.1-46.3); Red Blood Cell Count 3.11 M/mm3 (3.80-5.20); White Blood Cell Count 8.98 K/mm3 (4.00-11.30)
[2020-06-01 06:13] LABS: Anion Gap 6 mmol/L (6-16); Blood Urea Nitrogen 8 mg/dL (8-24); Bun/Creatinine Ratio 10.8 (12.0-20.0); CO2, Blood 32 mmol/L (21-32); Calcium, Blood 8.3 mg/dL (8.5-10.1); Chloride, Blood 97 mmol/L (98-108); Creatinine, Blood 0.74 mg/dL (0.40-1.00); Glomerular Filtration Rate >60 (60-); Glucose, Blood 87 mg/dL (70-99); Potassium, Blood 3.9 mmol/L (3.5-5.5); Sodium, Blood 135 mmol/L (136-145)
--- NOTE | 2020-06-01 08:10 | NUR ---
PT ALERT ORIENTED X3, STATES PAIN UNDER CONTROL. WILL ASK FOR MEDS WHEN DESIRES. HEART RATE REGULAR, NO MURMER NOTED. NO TELE. LUNGS CLEAR, RESP EASY, UNLABORED. ON RA. BT HYPO, ABD FIRM. PT STATES PAINFUL. LAST BM 2 DAYS. WILL ASK FOR MED WHEN DESIRES. VIODS PER BATHROOM. INDEPENDANT IN ROOM. BED IN LOW POSITION, CALL LITE IN REEACH, CALLS APPROP. MEDIPORT ACCESSED, BUT IS HEPARIN LOCKED.
--- NOTE | 2020-06-01 18:22 | NUR ---
PT QUITE PLEASANT TODAY. PAIN MANAGED WITH AVAIL MEDS. FAMILY IN TO VISIT TODAY. DR ORDERED U/S TO SEE IF FLUID IN ABD NEEDS TO BE REMOVED. PENDING RESULTS. NO NEW CONCERNS TODAY. PT INDEPENDANT TO BATHROOM. BED IN LOW POSITION, CALL LITE IN REACH, CALLS APPROP
[2020-06-02] MEDS ORDERED: BISA10S PR (10:12)
[2020-06-02] MEDS ORDERED: AMOCLA875 PO (10:13)
[2020-06-02] MEDS ORDERED: Colace100 MG PO (10:13)
[2020-06-02] MEDS ORDERED: FURO20 PO (10:14)
[2020-06-02] MEDS ORDERED: ONDA4ODT MM (10:17)
[2020-06-02] MEDS ORDERED: PANT40 PO (10:18)
[2020-06-02] MEDS ORDERED: MIRALAX17 GM PO (10:19)
[2020-06-02] MEDS ORDERED: POTCHL20ER PO (10:20)
[2020-06-02] MEDS ORDERED: SENN187 PO (10:20)
[2020-06-02] MEDS ORDERED: SIME80CH UD (10:22)
[2020-06-02] MEDS ORDERED: VISBIOME PROBI1 EACH (10:26)
[2020-06-02] MEDS ORDERED: FENTANYL1 EAC7 TOP (13:06)
--- NOTE | 2020-06-02 15:03 | NUR ---
PATIENT D/C'D TO HOME WITH DAUGHTER. RX MEDICATIONS FAXED TO [facility]. HARD SCRIPT FOR FENTANYL GIVEN TO PATIENT. DC INSTRUCTIONS AND EDUCATION DISCUSSED WITH PATIENT AND COPY PROVIDED. PATIENT DENIES ANY FURTHER QUESTIONS OR CONCERNS.
== END 2020-06-02 15:16 | disposition home or self-care (01) | DRG 314 ==
LOC: ER 11:58 → MEDS 16:43 → ICUE 16:43 → ICUW 16:43 → ICUE 17:32 → MEDS 05-25 10:17
PROVIDERS: Emergency Medicine; Internal Medicine; Physician Assistant; ADMIT Family Medicine
PROC: 3E043XZ Introduction of Vasopressor into Central Vein, Percutaneous Approach (ICD-10-PCS; principal; 2020-05-23)
PROC: 30233R1 Transfusion of Nonautologous Platelets into Peripheral Vein, Percutaneous Approach (ICD-10-PCS; 2020-05-23)
DX: T82.7XXA Infection and inflammatory reaction due to other cardiac and vascular devices, implants and grafts, initial encounter (principal); D61.810 Antineoplastic chemotherapy induced pancytopenia; K22.6 Gastro-esophageal laceration-hemorrhage syndrome; R65.21 Severe sepsis with septic shock; A41.59 Other Gram-negative sepsis; C78.7 Secondary malignant neoplasm of liver and intrahepatic bile duct; E87.1 Hypo-osmolality and hyponatremia; N17.9 Acute kidney failure, unspecified; R18.0 Malignant ascites; N39.0 Urinary tract infection, site not specified; C25.2 Malignant neoplasm of tail of pancreas; Z20.822 Contact with and (suspected) exposure to COVID-19; E87.6 Hypokalemia; I10 Essential (primary) hypertension; E86.0 Dehydration; E83.39 Other disorders of phosphorus metabolism; K52.9 Noninfective gastroenteritis and colitis, unspecified; G89.3 Neoplasm related pain (acute) (chronic); Z86.718 Personal history of other venous thrombosis and embolism; F17.210 Nicotine dependence, cigarettes, uncomplicated
CPT/HCPCS: 36415; 36430; 70450; 71045; 74176; 74177; 76705; 80048; 80053; 80069; 81001; 82533; 83605; 83690; 83735; 84145; 85014; 85018; 85025; 86850; 86900; 86901; 87040; 87077; 87086; 87186; 93005; 93010; 93306; 93970; 96361; 96374; 96375; 99285-25; A9270; C1751; C9113; J0461; J0696; J1170; J1642; J1650; J1940; J2405; J2765; J3010; J3475; J3480; J7030; J7050; J7060; J7120; P9035; Q5110; Q9967